=== PATIENT | male | born 1975 | race Caucasian/White ===

== ENCOUNTER 2019-06-19 12:16 | Emergency (ER) | payer OTHER ==
[~2019-06-19] VITALS: Ht 162.6 cm; Wt 81.7 kg
[~2019-06-19 12:16] MED LIST: ANXIETY MED; ASPIR 8181 MG PO; Buspirone HCl5 MG PO; ESCI10 PO; HTN MED; HYDCHL25 PO; LISI20 PO; LOVAZA1 GM PO; MICROZIDE12.5 MG PO; PRAV20 PO; Zofran8 MG PO; [UNRECOGNIZED DRUG - REMARK]
[2019-06-19 13:15] LABS: BASOPHILS ABSOLUTE AUTO 0.07 K/mm3 (0.00-0.23); BASOPHILS PERCENT AUTO 1 % (0-2); EOSINOPHILS ABSOLUTE AUTO 0.03 K/mm3 (0.00-0.68); EOSINOPHILS PERCENT AUTO 0 % (0-6); Hemoglobin 19.2 g/dL (13.5-17.5); IMMATURE GRAN ABSOLUTE AUTO 0.03 K/mm3 (0.00-0.10); IMMATURE GRAN PERCENT AUTO 0 % (0-1); LYMPHOCYTES ABSOLUTE AUTO 2.14 K/mm3 (0.84-5.20); LYMPHOCYTES PERCENT AUTO 28 % (21-46); MONOCYTES ABSOLUTE AUTO 0.81 K/mm3 (0.16-1.47); MONOCYTES PERCENT AUTO 11 % (4-13); Mean Corpuscular HGB 29.9 pg (26.0-34.0); Mean Corpuscular HGB Conc 33.8 g/dL (31.5-36.5); Mean Corpuscular Volume 89 fL (80-100); NEUTROPHILS ABSOLUTE AUTO 4.58 K/mm3 (1.96-9.15); NEUTROPHILS PERCENT AUTO 60 % (41-73); Platelet Count 229 K/mm3 (150-400); RDW Standard Deviation 42.3 fL (35.1-46.3); Red Blood Cell Count 6.42 M/mm3 (4.30-5.90); White Blood Cell Count 7.66 K/mm3 (4.00-11.30)
[2019-06-19 13:24] LABS: Albumin, Blood 4.2 g/dL (3.4-5.0); Albumin/Globulin Ratio 0.8 (0.8-1.8); Bilirubin, Total 0.3 mg/dL (0.1-1.0); Bun/Creatinine Ratio 9.1 (12.0-20.0); Calcium, Blood 9.6 mg/dL (8.5-10.1); Creatinine, Blood 4.17 mg/dL (0.60-1.20); Globulin, Blood 5.6 g/dL (2.2-4.0); Total Protein, Blood 9.8 g/dL (6.4-8.2)
[2019-06-19 13:45] LABS: Hematocrit 56.8 % (37.0-53.0)
[2019-06-19 13:54] LABS: Creatine Kinase MB 5.4 ng/mL (0.0-3.6); Creatine Kinase MB Index 1.6 (0.0-4.0)
[2019-06-19] MEDS ORDERED: TAMS.4ER PO (15:17)
[2019-06-19] MEDS ORDERED: Vitamin D2000 UNIT PO (15:18)
[2019-06-19] MEDS ORDERED: GABA300 PO (15:21)
== END 2019-06-19 17:56 | disposition home or self-care (01) ==
LOC: ER 12:16
PROVIDERS: Physician Assistant
DX: N17.9 Acute kidney failure, unspecified (principal); K52.9 Noninfective gastroenteritis and colitis, unspecified; I10 Essential (primary) hypertension; F41.9 Anxiety disorder, unspecified; F17.200 Nicotine dependence, unspecified, uncomplicated; Z79.82 Long term (current) use of aspirin; Z79.899 Other long term (current) drug therapy
CPT/HCPCS: 36415; 74177; 80053; 82550; 82553; 82947; 83690; 83735; 84100; 85025; 93005; 93010; 96361; 96365-59; 99284-25; J2543; J7030; J7120; Q9967

== ENCOUNTER 2020-05-23 22:39 | Emergency (ER) | payer OTHER ==
[~2020-05-23] VITALS: Ht 162.6 cm; Wt 95.2 kg
[~2020-05-23 22:39] MED LIST changes: +GABA300 PO; +TAMS.4ER PO; +Vitamin D2000 UNIT PO
== END 2020-05-23 22:54 | disposition home or self-care (01) ==
LOC: ER 22:39
DX: F32.9 Major depressive disorder, single episode, unspecified (principal); F10.129 Alcohol abuse with intoxication, unspecified; I10 Essential (primary) hypertension; E78.5 Hyperlipidemia, unspecified; F17.200 Nicotine dependence, unspecified, uncomplicated; Z79.82 Long term (current) use of aspirin; Z79.899 Other long term (current) drug therapy
CPT/HCPCS: 99282

== ENCOUNTER 2020-11-25 04:09 | Emergency (ER) | payer OTHER ==
[~2020-11-25] VITALS: Ht 165.1 cm; Wt 81.7 kg
[2020-11-25 05:44] LABS: Source, Urine Clean Catch
[2020-11-25 05:45] LABS: Bilirubin, Urine Neg (Neg); Blood, Urine 1+ (Neg); Glucose Qualitative, Urine 2+ (Neg); Ketones, Urine Neg (Neg); Leukocyte Esterase, Urine Neg (Neg); Nitrite, Urine Neg (Neg); Protein, Urine 1+ (Neg); Specific Gravity, Urine 1.025 (1.003-1.022); Urobilinogen, Urine NORM (Normal)
[2020-11-25 05:50] LABS: Color, Urine Yellow (P-Yellow)
[2020-11-25 05:51] LABS: Appearance, Urine Clear (Clear); Bacteria Mod /hpf; Mucus Light (0-Heavy); Red Blood Cells, Urine 0-2 /hpf (0-2); Squamous Epithelial Cells Not Seen /hpf (Few); White Blood Cells, Urine 0-2 /hpf (0-5)
[2020-11-25] MEDS ORDERED: DOC250 PO (06:53)
== END 2020-11-25 07:05 | disposition home or self-care (01) ==
LOC: ER 04:09
PROVIDERS: Emergency Medicine
DX: K40.90 Unilateral inguinal hernia, without obstruction or gangrene, not specified as recurrent (principal); I10 Essential (primary) hypertension; F17.200 Nicotine dependence, unspecified, uncomplicated; Z79.82 Long term (current) use of aspirin; Z79.899 Other long term (current) drug therapy
CPT/HCPCS: 81001; 87086; 99283

== ENCOUNTER 2025-03-02 07:28 | Day surgery (SDC) | payer OTHER ==
[2025-03-02] VITALS (9 sets, daily range): BP systolic 108–132; BP diastolic 71–91
[~2025-03-02] VITALS: Ht 162.6 cm; Wt 92.8 kg
[~2025-03-02 07:28] MED LIST changes: +ATOR80 PO; +DOC250 PO; +METF500 PO; +VERA240ER PO
[2025-03-02] MEDS ORDERED: NS 2,000 ML IV ONE (08:30)
[2025-03-02] MEDS ORDERED: NS 100 ML IV ONE (08:31)
[2025-03-02] MEDS ORDERED: NS 250 ML IV ONE (08:31)
[2025-03-02] MEDS ORDERED: Heparin Sodium 1000 Units/ML 10ML MDV ONE (08:32)
[2025-03-02] MEDS ORDERED: FentaNYL Citrate 50 MCG/ML 2 ML Injection ONE (08:48)
[2025-03-02] MEDS ORDERED: Midazolam HCl 1MG / ML 2ML Vial ONE (08:48)
--- NOTE | 2025-03-02 10:30 | NUR ---
PT LYING SUPINDE. L GROIN IS SOFT AND NON TENDER.
--- NOTE | 2025-03-02 10:38 | NUR ---
PLAVIX CALLED INTO [facility]
[2025-03-02] MEDS ORDERED: CLOP75 PO (10:39)
--- NOTE | 2025-03-02 11:57 | NUR ---
0941-PATIENT BACK FROM PROCEDURE TO RECOVERY ROOM. PATIENT DROWSY BUT AWAKENS TO VOICE. PATIENT DENIES COMPLAINTS. VSS. LEFT GROIN SITE REVIEWED W TECH, SITE WNL. LEFT GROIN W/O SWELLING/HEMATOMA, BLEEDING, OR TENDERNESS. PULSES +1 TO BILAT DP/PT, SLIGHTLY STRONGER NOW ON RIGHT SIDE THEN PRIOR TO PROCEDURE. HOB FLAT, PT SUPINE. AT 1115 HOB ELEVATED TO 15 DEGREES, GROIN W/O CHANGES/STABLE. AT 1130 HOB TO 30 DEGREES, GROIN STABLE. PATIENT KATELIN BREAKFAST/FLUIDS. LEFT GROIN REMAINS STABLE. NEW RX FOR PLAVIX CALLED IN TO [facility].
--- NOTE | 2025-03-02 13:21 | NUR ---
PATIENT OOB TO DRESS AT 1220, GROIN SITE REMAINED STABLE W/O CHANGE. VERBAL AND WRITTEN DISCHARGE INSTRUCTIONS GIVEN TO PT WITH CLEAR UNDERSTANDING. GROIN CHECKED AGAIN JUST PRIOR TO DISCHARGE AND REMAINS STABLE W/O CHANGE. PATIENT ESCORTED OUT VIA WHEELCHAIR AND CARE HANDED OVER TO PT'S MOTHER WHOM IS DRIVING PATIENT HOME. PATIENT DC'D HOME IN STABLE CONDITION AT 1232.
== END 2025-03-02 23:00 | disposition home or self-care (01) ==
LOC: MHTC 07:28
DX: I70.223 Atherosclerosis of native arteries of extremities with rest pain, bilateral legs (principal); E78.5 Hyperlipidemia, unspecified; I10 Essential (primary) hypertension; F17.210 Nicotine dependence, cigarettes, uncomplicated; Z79.899 Other long term (current) drug therapy
CPT/HCPCS: 76937; 82947; 99152; C1760; C1769; C1887; C1894; C2623; J1644; J2250; J3010; J7030; J7050; Q9967